=== PATIENT | male | born 1950 | race Two or more races ===

== ENCOUNTER 2024-01-03 16:58 | Emergency (ER) | payer SELFPAY ==
[2024-01-03 17:14] VITALS: BP 146/75; PULSE 77; RESP 18; TEMP 98.1; BMI 27.5
[2024-01-03] MEDS ORDERED: ACETAMINOPHEN 500 MG TABLET (FP) ONE (18:34)
[2024-01-03] MEDS: ACETAMINOPHEN 500 MG TABLET (FP) PO ONE (18:53)
[2024-01-03] MEDS ORDERED: LIDOCAINE 4% PATCH TP ONE ×2 (20:08→20:16)
[2024-01-03] MEDS: LIDOCAINE 5% TOPICAL PATCH TP ONE ×2 (20:20→20:25)
[2024-01-04] MEDS ORDERED: LIDOCAINE PATCH REMOVAL MC SCH ×2 (08:00)
== END 2024-01-03 20:27 | disposition home or self-care (01) ==
LOC: JER 16:58
DX: M54.16 Radiculopathy, lumbar region (principal); R20.0 Anesthesia of skin; R20.2 Paresthesia of skin
CPT/HCPCS: 72100-TC-FY; 72131-TC; 93970-TC; 99284-25